=== PATIENT | male | born 1955 | race African-American/Black ===

== ENCOUNTER → 2017-05-30 | Outpatient (CLI) | payer OTHER ==
[~2017-05-30] MED LIST: ACET65TA OR; ASPI325T OR; OXYC10TA97 OR; TEGR100C OR; VICO5TAB OR
== END ==
LOC: M OUTALCOH 12:27
PROVIDERS: ATTEND Psychiatry & Neurology Psychiatry
DX: Z13.9 Encounter for screening, unspecified (principal); F12.20 Cannabis dependence, uncomplicated; F14.20 Cocaine dependence, uncomplicated

== ENCOUNTER 2017-06-10 09:58 | Outpatient (RCR) | payer OTHER | END 2017-07-03 | LOC: M OUTALCOH 09:58 | DX: F12.20 Cannabis dependence, uncomplicated (principal); F14.20 Cocaine dependence, uncomplicated | CPT/HCPCS: 90834 ==

== ENCOUNTER 2018-07-03 21:07 | Inpatient (IN) | payer OTHER ==
[~2018-07-03] VITALS: Ht 190.5 cm; Wt 97.3 kg
[2018-07-03] MEDS ORDERED: ONDANSETRON 4MG/2ML VIAL (J2405) IV ONE (21:15)
[2018-07-03] MEDS ORDERED: NS 1,000 ML IV ONE (21:15)
[2018-07-03] MEDS ORDERED: TETANUS/DIPHTHERIA TOX ADSORB ADULT 0.5ML SYR/VIAL (90714) IM ONE (21:15)
[2018-07-03] MEDS ORDERED: ISOVUE-370 76% 100ML VIAL (Q9967) As Ordered ONE (21:23)
[2018-07-03 21:31] LABS: BASO # 0.1 10^3/uL (0.0-0.2); BASO % 0.7 % (0.0-1.0); EOS # 0.1 10^3/uL (0.0-0.50); EOS % 1.2 % (0.0-3.0); HEMATOCRIT 43.3 % (42.0-52.0); HEMOGLOBIN 14.3 g/dl (13.5-17.5); LYMPH # 3.2 10^3/uL (1.5-4.5); LYMPH % 31.5 % (24.0-44.0); MONO # 1.1 10^3/uL (0.0-0.8); MONO % 10.4 % (0.0-5.0); NEUTROPHILS # 5.7 10^3/uL (1.8-7.7); NEUTROPHILS % 55.8 % (36.0-66.0); PLATELET COUNT, AUTOMATED 196 10^3/uL (150-450); RED BLOOD COUNT 4.76 10^6/uL (4.30-6.10); WHITE BLOOD COUNT 10.2 10^3/uL (4.0-10.0)
[2018-07-03 21:33] LABS: VENOUS BASE EXCESS 0.9 (-2.0-2.0); VENOUS HCO3 26.3 MEQ/L (23.0-27.0); VENOUS O2 SATURATION 98.2 % (60.0-80.0); VENOUS PARTIAL PRESSURE CO2 44.4 mmHg (38.0-50.0); VENOUS PARTIAL PRESSURE O2 109.7 mmHg (30.0-50.0); VENOUS STANDARD HCO3 25.3 MEQ/L; VENOUS TOTAL CO2 27.6 MEQ/L (24.0-28.0)
[2018-07-03 21:44] LABS: INR 1.08; PROTHROMBIN TIME 14.1 SECONDS (12.1-14.4)
[2018-07-03 21:45] LABS: PARTIAL THROMBOPLASTIN TIME 28.4 SECONDS (25.4-37.6)
--- NOTE | 2018-07-03 21:46 | REP ---
Clinical: Trauma. Findings: The patient is noted to be status post craniotomy and craniectomy involving the left frontoparietal-temporal region with encephalomalacia involving the left temporal lobe. The ventricles are symmetric. Durand-white differentiation is relatively well maintained. No acute intracranial hemorrhage or mass/mass effect. No acute extra-axial fluid collection. No acute fracture. Visualized sinuses and mastoid air cells are clear. Impression: 1. Prior craniotomy involving the left hemisphere with encephalomalacia to the left temporal lobe. 2. No evidence for acute intracranial pathology or trauma/injury. Electronically Signed by Kenneth Galvez MD 07/03/2018 09:38 P
--- NOTE | 2018-07-03 21:49 | REP ---
Clinical: Trauma. Technique: Axial noncontrast images from the skull base to the thoracic inlet with coronal and sagittal re-formations. Findings: Alignment and lordosis maintained. Vertebral bodies are intact and there is no evidence for acute fracture / compression injury or subluxation. Advanced degenerative changes at the C1-C2 level and moderate to early advanced multilevel degenerative changes noted throughout the remainder of the cervical spine including osteophytosis and endplate sclerosis. Spinal canal is patent. Posterior elements and spinous processes are intact. Paravertebral soft tissues within normal limits. Impression: Multilevel chronic spondylosis. No evidence for acute cervical spine pathology or trauma/injury. Electronically Signed by Kenneth Galvez MD 07/03/2018 09:41 P
[2018-07-03 21:51] LABS: ALBUMIN 3.7 GM/DL (3.2-5.2); ALT/SGPT 27 U/L (12-78); AMYLASE 145 U/L (25-115); BILIRUBIN,DIRECT 0.1 MG/DL (0.0-0.2); BILIRUBIN,TOTAL 0.5 MG/DL (0.2-1.0); BLOOD UREA NITROGEN 15 MG/DL (7-18); CALCIUM LEVEL 8.5 MG/DL (8.8-10.2); CARBON DIOXIDE LEVEL 26 MEQ/L (21-32); CHLORIDE LEVEL 105 MEQ/L (98-107); CPK CREATINE PHOSPHOKINASE 483 U/L (39-308); CREATININE FOR GFR 1.68 MG/DL (0.70-1.30); ETHYL ALCOHOL (ETHANOL) < 0.003 % (0.000-0.010); GLOMERULAR FILTRATION RATE 53.9 (>49); GLUCOSE, FASTING 133 MG/DL (70-100); LIPASE 233 U/L (73-393); MB/CK RELATIVE INDEX 0.77 (< OR =4); POTASSIUM SERUM 4.2 MEQ/L (3.5-5.1); SODIUM LEVEL 140 MEQ/L (136-145); TOTAL PROTEIN 7.1 GM/DL (6.4-8.2); TROPONIN I 0.04 NG/ML (< 0.10)
--- NOTE | 2018-07-03 21:52 | REP ---
Clinical: Trauma. Technique: Axial noncontrast images through the facial bones to include the mandible with coronal and sagittal re-formations. Findings: Evidence for prior left frontotemporal craniotomy with underlying encephalomalacia in the left temporal lobe. The osseous structures are otherwise intact and there is no evidence for acute fracture or dislocation. Specifically, the bilateral zygomatic arches, nasal bones, and mandible including bilateral temporomandibular joints appear normal and symmetric. The sinuses and mastoid air cells are all well aerated and clear without fluid level to suggest occult trauma. The bilateral orbits including the globes and intraconal contents appear symmetric and normal. The surrounding soft tissues are grossly unremarkable. Impression: 1. Prior left frontotemporal craniotomy with encephalomalacia in the left temporal lobe. 2. No evidence for acute arcgis developer or trauma/injury. Electronically Signed by Kenneth Galvez MD 07/03/2018 09:43 P
--- NOTE | 2018-07-03 21:58 | REP ---
Clinical: Trauma. Technique: Axial contrast enhanced images from the thoracic inlet to the upper abdomen with coronal and sagittal re-formations using 100 ml Isovue 370 intravenous contrast. Findings: Lung gilliland demonstrate mild posterior basilar dependent changes without consolidation/contusion, pleural effusion, or pneumothorax. The mediastinum demonstrates normal thoracic aorta, pulmonary vasculature and heart/pericardium without evidence for mediastinal hematoma or injury. No significant adenopathy. The tracheobronchial tree is patent. The visualized osseous structures of the thorax are intact. The arms are crossed over the anterior chest and there is evidence to suggest fractures involving the right distal radius at the wrist. Impression: 1. No evidence for acute thoracic trauma/injury or pathology. 2. Lung gilliland demonstrate mild posterior basilar dependent changes. 3. Incidental note is made of a intra-articular comminuted fracture of the distal right radius crossed over the anterior chest wall. Electronically Signed by Kenneth Galvez MD 07/03/2018 09:50 P
--- NOTE | 2018-07-03 22:03 | REP ---
Clinical: Trauma. Technique: Axial contrast enhanced images from the lung bases to the pubic symphysis with coronal and sagittal re-formations using 100 ml Isovue 370 intravenous contrast material. Findings: Lung bases demonstrate posterior basilar dependent changes. Incidental note is made of comminuted nondisplaced distal right radius fracture at the wrist which courses over the anterior abdomen. There is no evidence for solid organ injury. Liver, spleen, pancreas, gallbladder, bilateral adrenal glands and kidneys are normal. The enteric system is without obstruction or acute inflammatory process. Normal terminal ileum and appendix are identified in the right lower quadrant. Pelvis demonstrates normal bladder and mildly prominent prostate gland with mass effect on the base of the bladder. A minuscule amount of free fluid is identified in the posterior deep pelvis of uncertain etiology or significance. No free air. No adenopathy. Abdominal aorta and vasculature without aneurysm or dissection. Musculoskeletal structures of the abdomen and pelvis demonstrate degenerative changes without acute injury. Impression: 1. No evidence for solid organ injury, and no evidence for acute abdominopelvic pathology. 2. A minuscule amount of free fluid in the pelvis is of uncertain etiology or significance. 3. Incidental note is made of comminuted intra-articular fracture of the right distal radius at the wrist. Remainder of the osseous structures of the abdomen and pelvis appear intact. Electronically Signed by Kenneth Galvez MD 07/03/2018 09:55 P
--- NOTE | 2018-07-03 22:06 | REP ---
Clinical: Trauma. Technique: Axial noncontrast images through the thoracic spine with coronal and sagittal re-formations. Findings: Thoracic vertebral bodies are intact and there is no evidence for acute fracture / compression injury or subluxation. Normal kyphosis and satisfactory alignment is maintained. No significant degenerative changes. Spinal canal is patent. Posterior elements and spinous processes are intact. Paravertebral soft tissues are normal. Impression: No evidence for acute thoracic pathology or trauma/injury. Electronically Signed by Kenneth Galvez MD 07/03/2018 09:58 P
--- NOTE | 2018-07-03 22:08 | REP ---
Clinical: Trauma. Technique: Axial noncontrast images from T12-S1 with coronal and sagittal re-formations. Findings: Vertebral bodies are intact and there is no evidence for acute fracture / compression injury or subluxation. Alignment and lordosis maintained. Moderate multilevel degenerative changes include marginal osteophytes, endplate sclerosis and minimal hypertrophic facet changes. Disc spaces are relatively well maintained. Spinal canal is patent. Posterior elements and spinous processes are intact. Paravertebral soft tissues are within normal limits. Impression: Minimal age-related multilevel degenerative changes. No evidence for acute lumbosacral spine pathology or trauma/injury. Electronically Signed by Kenneth Galvez MD 07/03/2018 10:00 P
[2018-07-03 22:45] LABS: AMPHETAMINES LEVEL URINE NEGATIVE (NEGATIVE); BARBITURATES URINE NEGATIVE (NEGATIVE); BENZODIAZEPINES URINE NEGATIVE (NEGATIVE); CANNABINOIDS URINE POSITIVE (NEGATIVE); COCAINE METABOLITE URINE POSITIVE (NEGATIVE); METHADONE URINE NEGATIVE (NEGATIVE); OPIATES URINE NEGATIVE (NEGATIVE); PHENCYCLIDINE URINE NEGATIVE (NEGATIVE)
[2018-07-03] MEDS ORDERED: KETOROLAC 30 MG/ML VIAL (J1885) IV PRN (23:45)
[2018-07-03] MEDS ORDERED: ACETAMINOPHEN TAB 650MG DOSE (2X325MG) PO PRN (23:45)
[2018-07-03] MEDS ORDERED: ONDANSETRON 4MG/2ML VIAL (J2405) IV PRN (23:45)
[2018-07-04 02:00] VITALS: BP 165/95
[2018-07-04] MEDS: LR 1,000 ML IV SCH ×3 (02:14→18:00)
[2018-07-04 04:00] VITALS: BP 164/88
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
--- NOTE | 2018-07-04 07:13 | REP ---
Clinical: Trauma. Technique: AP, lateral, bilateral oblique views left wrist . Findings: The carpal bones, surrounding osseous structures, soft tissues, and joint spaces are normal. There is no evidence for acute fracture or dislocation. No subcutaneous emphysema or radiodense foreign body. Impression: Normal left wrist series. No acute fracture or dislocation Electronically Signed by Kenneth Galvez MD 07/04/2018 07:05 A
--- NOTE | 2018-07-04 07:15 | REP ---
Clinical: Trauma. Technique: AP and lateral views of the right wrist. Findings: Comminuted nondisplaced intra-articular fracture of the distal radial metaphysis. Overlying soft tissue swelling. Carpal bones are grossly intact. Impression: Comminuted nondisplaced fracture of the distal radial metaphysis extends the articular surface. Electronically Signed by Kenneth Galvez MD 07/04/2018 07:06 A
[2018-07-04 07:43] LABS: BASO % 0.3 % (0.0-1.0); EOS % 0.1 % (0.0-3.0); HEMATOCRIT 44.1 % (42.0-52.0); HEMOGLOBIN 14.8 g/dl (13.5-17.5); LYMPH # 1.8 10^3/uL (1.5-4.5); LYMPH % 14.8 % (24.0-44.0); MEAN CORPUSCULAR HEMOGLOBIN 30.2 pg (27.0-33.0); MEAN CORPUSCULAR HGB CONC 33.6 g/dl (32.0-36.5); MONO % 8.4 % (0.0-5.0); NEUTROPHILS # 9.3 10^3/uL (1.8-7.7); NEUTROPHILS % 76.2 % (36.0-66.0); PLATELET COUNT, AUTOMATED 198 10^3/uL (150-450); WHITE BLOOD COUNT 12.2 10^3/uL (4.0-10.0)
[2018-07-04 08:00] VITALS: BP 174/82
--- NOTE | 2018-07-04 08:09 | ECGEPIP ---
Stationary ECG Study [facility] - ED Test Date: 2018-07-03 Pat Name: NIRANJAN SLAUGHTER Department: Room: [place] [address] Gender: M [employer] Claims Examiner: tasha : 1955 Requested By: ANA ROSA LEWIS Order Number: [id number] Reading MD: Cielo Pike Measurements Intervals [place] Rate: 79 P: 62 TX: 136 QRS: 57 QRSD: 94 T: 47 QT: 373 QTc: 428 Interpretive Statements SINUS RHYTHM POSSIBLE RIGHT VENTRICULAR CONDUCTION DELAY NONSPECIFIC T-WAVE ABNORMALITY, CLINICAL CORRELATION, NO OLD FOR COMPARISON Electronically Signed On 07-04-2018 8:08:45 EST by Cielo Pike
[2018-07-04 08:13] LABS: ALBUMIN 3.5 GM/DL (3.2-5.2); ALT/SGPT 27 U/L (12-78); BILIRUBIN,TOTAL 0.7 MG/DL (0.2-1.0); BLOOD UREA NITROGEN 11 MG/DL (7-18); CALCIUM LEVEL 8.7 MG/DL (8.8-10.2); CARBON DIOXIDE LEVEL 28 MEQ/L (21-32); CHLORIDE LEVEL 104 MEQ/L (98-107); CREATININE FOR GFR 1.34 MG/DL (0.70-1.30); GLOMERULAR FILTRATION RATE > 60.0 (>49); GLUCOSE, FASTING 130 MG/DL (70-100); POTASSIUM SERUM 4.1 MEQ/L (3.5-5.1); SODIUM LEVEL 138 MEQ/L (136-145); TOTAL PROTEIN 7.6 GM/DL (6.4-8.2)
[2018-07-04] MEDS: PANTOPRAZOLE 40MG INJ (PROTONIX) (C9113) IV SCH (09:08)
[2018-07-04 12:00] VITALS: BP 164/90
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
--- NOTE | 2018-07-04 13:39 | REP ---
Clinical: Trauma. Technique: AP, lateral, bilateral oblique views of the right wrist. Findings: Comminuted fracture of the distal radial metaphysis extends the articular surface. Lateral view demonstrates small displaced fracture fragment. Carpal bones appear intact. Impression: Comminuted fracture of the distal radial metaphysis extends to the articular surface. Electronically Signed by Kenneth Galvez MD 07/04/2018 01:31 P
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
[2018-07-04 16:00] VITALS: BP 172/98
[2018-07-04 20:00] VITALS: BP 155/92
[2018-07-05] VITALS (7 sets, daily range): BP systolic 146–168; BP diastolic 86–94
[2018-07-05] MEDS: LR 1,000 ML IV SCH (02:31)
[2018-07-05] MEDS: PANTOPRAZOLE 40MG INJ (PROTONIX) (C9113) IV SCH (08:44)
[2018-07-05] MEDS ORDERED: INFLUENZA QUADRIVALENT PF VACCINE 0.5ML SYRINGE (90686) IM ONE (09:00)
[2018-07-05] MEDS ORDERED: SLF 3 ML SYR IV PRN (15:15)
[2018-07-05] MEDS ORDERED: IBUPROFEN 400 MG TAB PO PRN (17:30)
[2018-07-05] MEDS ORDERED: ACETAMINOPH W/CODEINE #3 TAB UD PO PRN (17:30)
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
[2018-07-05] MEDS ORDERED: SLF 3 ML SYR IV SCH (22:00)
[2018-07-06] VITALS: BP 137/85
[2018-07-06 04:00] VITALS: BP 143/69
[2018-07-06] MEDS ORDERED: PANTOPRAZOLE 40MG TAB (PROTONIX) PO SCH (09:00)
[2018-07-06 10:00] VITALS: BP 168/92
[2018-07-06 14:00] VITALS: BP_SYST 150; BP_SYST 180; BP_DIAS 85; BP_DIAS 89
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
== END 2018-07-06 14:49 | disposition home or self-care (01) | DRG 89 ==
LOC: M ED 21:07 → M ED INP 23:56 → M PCU 07-04 01:58 → M MS5PR 07-05 18:54
PROVIDERS: ADMIT Surgery; ATTEND Surgery
DX: S06.0X9A Concussion with loss of consciousness of unspecified duration, initial encounter (principal); S59.201A Unspecified physeal fracture of lower end of radius, right arm, initial encounter for closed fracture; V03.99XA Pedestrian with other conveyance injured in collision with car, pick-up truck or van, unspecified whether traffic or nontraffic accident, initial encounter

== ENCOUNTER → 2024-03-24 | Outpatient (REF) | payer MEDICARE ==
[2024-03-24 19:58] LABS: APPEARANCE, URINE MANUAL TURBID (CLEAR); COLOR, URINE MANUAL BROWN (YELLOW)
[2024-03-24 19:59] LABS: GLUCOSE, URINE (UA) MANUAL NEGATIVE (NEGATIVE); KETONE, URINE MANUAL NEGATIVE (NEGATIVE); PROTEIN, URINE MANUAL 2+ mg/dL (NEGATIVE)
[2024-03-24 20:00] LABS: BILIRUBIN, URINE MANUAL NEGATIVE (NEGATIVE); BLOOD URINE MANUAL POSITIVE (NEGATIVE); LEUKOCYTE ESTERASE, URINE MAN POSITIVE (NEGATIVE); NITRITE, URINE MANUAL NEGATIVE (NEGATIVE); UROBILINOGEN, URINE MANUAL 1 MG mg/dl (NORMAL)
[2024-03-24 20:16] LABS: WBC, URINE TNTC /hpf (0-3)
[2024-03-24 20:17] LABS: RBC, URINE TNTC /hpf (0-3)
[2024-03-24 20:18] LABS: BACTERIA, URINE LARGE AMOUNT; HYALINE CAST, URINE NONE SEEN /lpf (0-1); TRIPLE PHOSPHATE CRYSTAL,URINE MOD AMOUNT /hpf
[2024-03-24 20:19] LABS: MUCUS, URINE SMALL AMOUNT (NEGATIVE); SQUAMOUS EPITHELIAL CELL URINE NONE SEEN /hpf (SMALL AMT)
== END ==
LOC: M LAB REF 19:11
PROVIDERS: ATTEND Physician Assistant
DX: N39.0 Urinary tract infection, site not specified (principal)

== ENCOUNTER → 2024-06-19 | Outpatient (REF) | payer MEDICAID, MEDICARE, OTHER | LOC: M SMT 10:12 | PROVIDERS: ATTEND Urology | DX: C61 Malignant neoplasm of prostate (principal); R97.20 Elevated prostate specific antigen [PSA]; F17.210 Nicotine dependence, cigarettes, uncomplicated; Z79.82 Long term (current) use of aspirin; Z79.890 Hormone replacement therapy; Z79.899 Other long term (current) drug therapy; Z90.79 Acquired absence of other genital organ(s) ==

== ENCOUNTER → 2024-06-25 | Outpatient (REF) | payer OTHER | LOC: M SMT 17:04 | PROVIDERS: ATTEND Urology | DX: N39.0 Urinary tract infection, site not specified (principal) ==

== ENCOUNTER 2024-09-04 10:29 | Day surgery (SDC) | payer MEDICARE, OTHER ==
[~2024-09-04] VITALS: Ht 190.5 cm; Wt 94.3 kg
[~2024-09-04 10:29] MED LIST changes: +ASPI81TA26 PO; +BAYE81TA10 PO; +BUSP5TA PO; +CARB1TAB20 PO; +CARB20TA PO; +CIAL20TA PO; +FLOM0.4C39 PO; +LEVO175T2 PO; +MULTTAB86 PO; +OMEP-173 PO; +OMEP1CAP73 PO; +PRAV40TA2 PO; +RAMI5CAP60 PO; +SYNT150T PO; +TAMO20TA8 PO; +THERTAB52 PO; +VITA100093 PO
[2024-09-04] MEDS: LR 1,000 ML IV SCH (11:35)
[2024-09-04] MEDS ORDERED: ONDANSETRON 4MG 2ML VIAL IV PRN (13:05)
[2024-09-04] MEDS: ceFAZolin SOD 2 GM in IV 1 EA IV ONE (13:12)
[2024-09-04] MEDS: HEPARIN SOD (PORCINE) 5000UNITS/ML 1ML VIAL/SYRINGE SQ ONE (13:15)
[2024-09-04] MEDS ORDERED: ROCURONIUM BROMIDE 50MG/5ML VIAL As Ordered ONE (13:18)
[2024-09-04] MEDS ORDERED: ACETAMINOPHEN 1000MG/100ML IV BAG As Ordered ONE (13:18)
[2024-09-04] MEDS ORDERED: MIDAZOLAM INJ 2MG/2ML VIAL As Ordered ONE (13:18)
[2024-09-04] MEDS ORDERED: propofoL 200 MG/20 ML VIAL As Ordered ONE (13:18)
[2024-09-04] MEDS ORDERED: LIDOCAINE 2% 100MG/5ML SDV (FOR ANES.) As Ordered ONE (13:18)
[2024-09-04] MEDS ORDERED: ONDANSETRON 4MG 2ML VIAL As Ordered ONE (13:18)
[2024-09-04] MEDS ORDERED: fentaNYL 250 MCG/5 ML INJECTION As Ordered ONE (13:18)
[2024-09-04] MEDS ORDERED: LABETALOL 100MG/20ML VIAL As Ordered ONE (13:47)
[2024-09-04] MEDS: busPIRone 5 MG TAB PO SCH (16:00)
[2024-09-04] MEDS ORDERED: HYDROmorphone HCL 2MG/ML 1ML VIAL As Ordered ONE (17:03)
[2024-09-04] MEDS: ceFAZolin 2 GM/D5W 50 ML IV BAG As Ordered ONE (17:11)
[2024-09-04] MEDS ORDERED: fentaNYL 100 MCG/2 ML INJECTION IV PRN (17:30)
[2024-09-04] MEDS: LIDOCAINE 1% SDV 30ML VIAL As Ordered ONE (17:30)
[2024-09-04] MEDS: ONDANSETRON 4MG 2ML VIAL IV PRN (19:03)
[2024-09-04] MEDS: oxyCODONE 5MG TAB PO PRN (19:04)
[2024-09-04 19:12] LABS: HEMATOCRIT 45.9 % (42.0-52.0); HEMOGLOBIN 14.9 g/dl (13.5-17.5); MEAN CORPUSCULAR HEMOGLOBIN 29.9 pg (27.0-33.0); MEAN CORPUSCULAR HGB CONC 32.5 g/dl (32.0-36.5); PLATELET COUNT, AUTOMATED 186 10^3/uL (150-450); RED BLOOD COUNT 4.99 10^6/uL (4.30-6.10); WHITE BLOOD COUNT 11.4 10^3/uL (4.0-10.0)
[2024-09-04] MEDS: HYDROMORPHONE HCL 0.5 MG/ 0.5 ML SYRINGE IV PRN (19:20)
[2024-09-04 19:50] LABS: BLOOD UREA NITROGEN 10 MG/DL (9-23); CALCIUM LEVEL 8.3 MG/DL (8.3-10.6); CARBON DIOXIDE LEVEL 26 MMOL/L (20-31); CHLORIDE LEVEL 105 MMOL/L (98-107); CREATININE FOR GFR 0.98 MG/DL (0.70-1.30); GLOMERULAR FILTRATION RATE > 60.0 (>49); GLUCOSE, FASTING 152 MG/DL (74-106); POTASSIUM SERUM 4.3 MMOL/L (3.5-5.1); SODIUM LEVEL 140 MMOL/L (136-145)
[2024-09-04 20:15] VITALS: BP 163/87; TEMP 97.3; O2SAT 98
[2024-09-04] MEDS: ACETAMINOPHEN 325 MG TAB PO PRN (20:36)
[2024-09-04] MEDS: NS (Normal Saline) 0.9% 500 ML IV SCH (20:36)
[2024-09-04] MEDS: DOCUSATE SODIUM 100MG CAPSULE PO SCH (20:36)
[2024-09-04] MEDS: carBAMazepine 200MG TABLET PO SCH (20:36)
[2024-09-04 20:45] VITALS: BP 161/90; TEMP 97.7; O2SAT 97
[2024-09-04 21:15] VITALS: BP 160/88; TEMP 97.3; O2SAT 97
[2024-09-04 22:00] VITALS: BP 157/85; TEMP 97.5; O2SAT 97
[2024-09-04 23:00] VITALS: BP 158/85; TEMP 97.5; O2SAT 97
[2024-09-04] MEDS: HEPARIN SOD (PORCINE) 5000UNITS/ML 1ML VIAL/SYRINGE SC SCH (23:48)
[2024-09-04] MEDS: ceFAZolin SOD 1 GM in DEXTROSE 5% (D5W) ADV/MINI-BAG 50 ML IV SCH (23:48)
[2024-09-05] VITALS (8 sets, daily range): BP systolic 124–160; BP diastolic 83–96; TEMP 97.3–98.1; O2SAT 95–99
[2024-09-05 05:28] LABS: HEMATOCRIT 44.6 % (42.0-52.0); HEMOGLOBIN 14.9 g/dl (13.5-17.5); MEAN CORPUSCULAR HEMOGLOBIN 30.3 pg (27.0-33.0); MEAN CORPUSCULAR HGB CONC 33.4 g/dl (32.0-36.5); MEAN CORPUSCULAR VOLUME 90.8 fl (80.0-96.0); PLATELET COUNT, AUTOMATED 188 10^3/uL (150-450); RED BLOOD COUNT 4.91 10^6/uL (4.30-6.10); WHITE BLOOD COUNT 13.8 10^3/uL (4.0-10.0)
[2024-09-05 05:36] LABS: BLOOD UREA NITROGEN 11 MG/DL (9-23); CALCIUM LEVEL 8.3 MG/DL (8.3-10.6); CARBON DIOXIDE LEVEL 28 MMOL/L (20-31); CHLORIDE LEVEL 105 MMOL/L (98-107); CREATININE FOR GFR 0.89 MG/DL (0.70-1.30); GLOMERULAR FILTRATION RATE > 60.0 (>49); GLUCOSE, FASTING 107 MG/DL (74-106); POTASSIUM SERUM 4.3 MMOL/L (3.5-5.1); SODIUM LEVEL 139 MMOL/L (136-145)
[2024-09-05] MEDS: LEVOTHYROXINE 125MCG TABLET (0.125MG) PO SCH (06:30)
[2024-09-05] MEDS: LEVOTHYROXINE 50MCG TABLET (0.05MG) PO SCH (06:30)
[2024-09-05] MEDS: PERCOCET 5MG/325MG TAB PO PRN ×2 (06:31→12:13)
[2024-09-05] MEDS ORDERED: D-10TAB2 PO (06:53)
[2024-09-05] MEDS ORDERED: ASPI81CH33 PO (06:53)
[2024-09-05] MEDS ORDERED: HOME MED LIST COMPLETE! XX SCH (06:55)
[2024-09-05] MEDS: LR 1,000 ML IV SCH (08:08)
[2024-09-05] MEDS: PRAVASTATIN 20 MG TAB PO SCH (08:53)
[2024-09-05] MEDS: OMEPRAZOLE 20MG CAP PO SCH (08:53)
[2024-09-05] MEDS: ramipriL 5 MG CAP PO SCH (08:54)
[2024-09-05] MEDS ORDERED: COLA100C5 PO (09:57)
[2024-09-05] MEDS ORDERED: CIPR-249 PO (09:57)
[2024-09-05] MEDS ORDERED: PERCOCET PO (09:57)
== END 2024-09-05 14:16 | disposition home or self-care (01) ==
LOC: UNDOADMIN 10:29 → M SDC 10:29 → M OR 10:29 → EDSTATUS 11:45 → M OR 20:08 → M MSPAV 20:08 → UNDODISIN 09-05 14:16 → M SDC 09-05 14:16
PROVIDERS: ATTEND Urology
DX: C61 Malignant neoplasm of prostate (principal); I10 Essential (primary) hypertension; E11.9 Type 2 diabetes mellitus without complications; E03.9 Hypothyroidism, unspecified; E78.00 Pure hypercholesterolemia, unspecified; F84.0 Autistic disorder; Z72.0 Tobacco use; Z79.899 Other long term (current) drug therapy; Z79.890 Hormone replacement therapy; Z79.82 Long term (current) use of aspirin; F32.A Depression, unspecified; K21.9 Gastro-esophageal reflux disease without esophagitis
CPT/HCPCS: 36415; 38571; 55866; 80048; 85027; 86850; 86900; 86901; 88305; 88309; J0131; J0665; J0690; J1100; J1171; J1920; J2250; J2405; J3010